=== PATIENT | male | born 1940 | race Caucasian/White ===

== ENCOUNTER 2016-08-17 09:37 | Day surgery (SDC) | payer MEDICARE, OTHER ==
--- NOTE | ~2016-08-17 | EGD ---
EGD REPORT [facility] [address] [address] NAME: JOSELO BOUCHER : 40 STATUS : REG [place] PAT#: [id number] AGE: 76 ADM/REG DATE : 08/17/16 MR#: [id number] REPORT SERV DATE: 08/17/16 DICTATED BY: KASHIF ANGEL DATE: 08/17/16 REPORT STATUS : Draft [facility]ANS[facility]IBED BY: [facility] DATE: 08/17/16 [facility] Patient Name: Joselo Boucher Date of : 1940 Attending MD: DELVIN ANGEL MD Procedure Date No Time: 08/17/2016 Procedure: Colonoscopy Indications: Screening for colorectal malignant neoplasm Referring MD: Ignacio REA MD Medicines: See the Anesthesia note for documentation of the administered medications Complications: No immediate complications. Estimated blood loss: None. Procedure: Pre-Anesthesia Assessment: - ASA Grade Assessment: II - A patient with mild systemic disease. - Prior to the procedure, a History and Physical was performed, and patient medications and allergies were reviewed. The patient's tolerance of previous anesthesia was also reviewed. The risks and benefits of the procedure and the sedation options and risks were discussed with the patient. All questions were answered, and informed consent was obtained. Prior Anticoagulants: The patient has taken no previous anticoagulant or antiplatelet agents. After reviewing the risks and benefits, the patient was deemed in satisfactory condition to undergo the procedure. After I obtained informed consent, the scope was passed under direct vision. Throughout the procedure, the patient's blood pressure, pulse, and oxygen saturations were monitored continuously. The PCF [id number] was introduced through the anus and advanced to the terminal ileum. The ileocecal valve, appendiceal orifice, terminal ileum and rectum were photographed. The entire colon was examined. The colonoscopy was performed without difficulty. The patient tolerated the procedure well. The quality of the bowel preparation was adequate. Findings: The perianal and digital rectal examinations were normal. The terminal ileum appeared normal. Multiple large-mouthed diverticula were found in the sigmoid colon, in the descending colon, at the splenic flexure and in the distal transverse colon. Non-bleeding internal hemorrhoids were found during retroflexion and were Grade I (internal hemorrhoids that do not prolapse). EGD REPORT [facility] [id number] [place]. [address] NAME: JOSELO BOUCHER : [birth year] STATUS : REG [facility]#: [id number] AGE: 76 ADM/REG DATE : 08/17/16 MR#: [id number] REPORT SERV DATE: 08/17/16 DICTATED BY: KASHIF ANGEL DATE: 08/17/16 REPORT STATUS : Draft TRANSCRIBED BY: [facility] DATE: 08/17/16 No other significant abnormalities were identified in a careful examination of the remainder of the colon. Impression: - The examined portion of the ileum was normal. - Diverticulosis in the sigmoid colon, in the descending colon, at the splenic flexure and in the distal transverse colon. - Non-bleeding internal hemorrhoids. Recommendation: - Patient has a contact number available for emergencies. The signs and symptoms of potential delayed complications were discussed with the patient. Return to normal activities tomorrow. Written discharge instructions were provided to the patient. - High fiber diet indefinitely. - Discharge patient to home. - Continue present medications. - Repeat colonoscopy in 10 years for surveillance. Procedure Code(s): --- Professional --- 79713, Colonoscopy, flexible, proximal to splenic flexure; diagnostic, with or without collection of specimen(s) by brushing or washing, with or without colon decompression (separate procedure) Diagnosis Code(s): --- Professional --- K64.0, First degree hemorrhoids K57.30, Diverticulosis of large intestine without perforation or abscess without bleeding Z12.11, Encounter for screening for malignant neoplasm of colon CPT copyright 2013 [employer]. All rights reserved. The codes documented in this report are preliminary and upon search strategist review may be revised to meet current compliance requirements. DELVIN ANGEL MD 08/17/2016 11:46 AM This report has been signed electronically. Number of Addenda: 0 Note Initiated On: 08/17/2016 11:21 AM Scope Withdrawal Time 0 hours 8 minutes 3 seconds EGD REPORT [facility] [address] [address] NAME: JOSELO BOUCHER : 40 STATUS : REG [place] PAT#: [id number] AGE: 76 ADM/REG DATE : 08/17/16 MR#: [id number] REPORT SERV DATE: 08/17/16 DICTATED BY: KASHIF ANGEL DATE: 08/17/16 REPORT STATUS : Draft TRANSCRIBED BY: [employer] [facility] DATE: 08/17/16 [address] [id number]
[~2016-08-17 09:37] MED LIST: PRIN20 PO; ZOCOR40 PO
== END 2016-08-17 23:59 | disposition home or self-care (01) ==
LOC: DMU 09:37
PROVIDERS: Internal Medicine Gastroenterology
PROC: 0DJD8ZZ Inspection of Lower Intestinal Tract, Via Natural or Artificial Opening Endoscopic (ICD-10-PCS; principal; 2016-08-17 11:30)
DX: Z12.11 Encounter for screening for malignant neoplasm of colon (principal); K64.0 First degree hemorrhoids; K57.30 Diverticulosis of large intestine without perforation or abscess without bleeding; I10 Essential (primary) hypertension; E78.00 Pure hypercholesterolemia, unspecified; Z98.890 Other specified postprocedural states; Z85.828 Personal history of other malignant neoplasm of skin; Z87.891 Personal history of nicotine dependence; Z79.899 Other long term (current) drug therapy